=== PATIENT | female | born 1995 ===

== ENCOUNTER 2019-10-27 02:47 | Inpatient (IN) | payer MEDICAID ==
[2019-10-27] MEDS ORDERED: fentaNYL/Ropivacaine/Ns/PF 100 ML Bag ONE (02:53)
[2019-10-27] MEDS ORDERED: Lidocaine 1% 50 ML MDV INJECT PRN (03:09)
[2019-10-27] MEDS ORDERED: Carboprost Tromethamine 250 MCG/1 ML Amp IM PRN (03:09)
[2019-10-27] MEDS ORDERED: Sodium Chloride 0.9% 10 ML SDV IV PRN (03:09)
[2019-10-27] MEDS ORDERED: Methylergonovine 0.2 MG/1 ML Amp IM PRN (03:09)
[2019-10-27] MEDS ORDERED: Sodium Chloride 0.9% 10 ML Syringe FLUSH PRN (03:09)
[2019-10-27] MEDS ORDERED: Tranexamic Acid 1,000 MG in Sodium Chloride 0.9% 100 ML IV PRN (03:09)
[2019-10-27] MEDS ORDERED: Butorphanol 1 MG/ML SDV IVPUSH PRN (03:09)
[2019-10-27] MEDS ORDERED: Nalbuphine 10 MG/1 ML Vial IVPUSH PRN (03:09)
[2019-10-27] MEDS ORDERED: Sodium Chloride 0.9% 2.5 ML Syringe FLUSH PRN (03:09)
[2019-10-27] MEDS ORDERED: Misoprostol 200 MCG Tab PO PRN (03:09)
[2019-10-27] MEDS ORDERED: Water For Irrigation,Sterile 1,000 ML Container IRR PRN (03:09)
[2019-10-27] MEDS ORDERED: Oxytocin/0.9 % Sodium Chloride 30 UNIT/500 ML BAG IV SCH ×2 (03:15→07:30)
--- NOTE | 2019-10-27 03:27 | PCM.PREANE ---
Preanesthetic Assessment - Anesthesia/Transfusion/Family Hx Anesthesia History: No Prior Anesthesia Family History of Anesthesia Reaction: Yes (mother - unknown respiratory issue) Transfusion History: No Prior Transfusion(s) - Review of Systems General: No Symptoms Pulmonary: No Symptoms Cardiovascular: No Symptoms Gastrointestinal: No Symptoms Neurological: No Symptoms Other: Reports: None ( - 39 3/7 weeks, in active labor, dilated to 5 cm) - Physical Assessment NPO Status Date: 10/27/19 NPO Status Time: 03:23 ASA Class: 2 Mental Status: Alert & Oriented x3 Airway Class: Mallampati = 3 Dentition: Reports: Normal Dentition Thyro-Mental Finger Breadths: 2 ROM/Head Extension: Full Lungs: Clear to Auscultation, Normal Respiratory Effort Cardiovascular: Regular Rate, Regular Rhythm - Acknowledgements Anesthesia Type Planned: Epidural Pt an Appropriate Candidate for the Planned Anesthesia: Yes Alternatives and Risks of Anesthesia Discussed w Pt/Guardian: Yes Pt/Guardian Understands and Agrees with Anesthesia Plan: Yes PreAnesthesia Questionnaire - CURRENT (IN HOUSE) MEDS Current Meds: Current Medications Butorphanol Tartrate (Stadol) 1 mg IVPUSH Q1H PRN PRN Reason: Pain Carboprost Tromethamine (Hemabate Ds) 250 mcg IM ASDIRECTED PRN PRN Reason: Post Hemorrhage Tranexamic Acid 1,000 mg/ (Sodium Chloride) 110 mls @ 660 mls/hr IV ONETIME PRN PRN Reason: Bleeding Lactated Ringer's (Ringers, Lactated) 1,000 mls @ 150 mls/hr IV ASDIRECTED ILENE Oxytocin/Sodium Chloride (Oxytocin 30 Unit/500 Ml-Ns) 30 unit in 500 mls @ 999 mls/hr IV TITRATE ILENE Lidocaine HCl (Xylocaine 1%) 50 ml INJECT ONETIME PRN PRN Reason: Laceration repair Methylergonovine Maleate (Methergine) 0.2 mg IM ASDIRECTED PRN PRN Reason: Post Hemorrhage Misoprostol (Cytotec) 200 mcg PO ONETIME PRN PRN Reason: Post Hemorrhage Nalbuphine HCl (Nubain) 10 mg IVPUSH Q1H PRN PRN Reason: Pain (severe 7-10) Sodium Chloride (Saline Flush) 10 ml FLUSH ASDIRECTED PRN PRN Reason: Keep Vein Open Sodium Chloride (Saline Flush) 2.5 ml FLUSH ASDIRECTED PRN PRN Reason: Keep Vein Open Sodium Chloride (Normal Saline) 10 ml IV ASDIRECTED PRN PRN Reason: IV Use Sterile Water (Sterile Water For Irrigation) 1,000 ml IRR ASDIRECTED PRN PRN Reason: delivery
[2019-10-27] MEDS: Lactated Ringers 1,000 ML IV SCH ×3 (03:41→04:57)
[2019-10-27] MEDS ORDERED: fentaNYL 100 MCG/2 ML SDV ONE (08:22)
--- NOTE | 2019-10-27 08:27 | PCM.SN.2 ---
- Free Text/Narrative Note: called to OB for increase in pain. Epidural bolused with 100 mcg of Fentanyl and infusion rate increased to 12 ml per hour.
--- NOTE | 2019-10-27 10:47 | PCM.SN.2 ---
- Free Text/Narrative Note: Epidural bag empty. Naropin 0.2% started. Rate 10ml/hr. Bolus 4ml/q15. Progressing well. Mostly complete.
[2019-10-27] MEDS ORDERED: Docusate Sodium 100 MG Cap PO PRN (12:25)
[2019-10-27] MEDS ORDERED: Bisacodyl 10 MG Supp RECTAL PRN (12:25)
[2019-10-27] MEDS ORDERED: Ibuprofen 800 MG Tab PO PRN (12:25)
[2019-10-27] MEDS ORDERED: Witch Hazel Medicated Pads 40/Jar TOP PRN (12:25)
[2019-10-27] MEDS ORDERED: oxyCODONE 5 MG Tab PO PRN (12:25)
[2019-10-27] MEDS ORDERED: Lanolin 100% Cream 7 GM Tube TOP PRN (12:25)
[2019-10-27] MEDS ORDERED: Benzocaine/Menthol 20%-0.5% Spray 78 GM Cannister TOP PRN (12:25)
--- NOTE | 2019-10-27 12:29 | PCM.DEL ---
L & D Note - General Info Date of Service: 10/27/19 Mother's Due Date: 10/29/19 - Delivery Note Labor: Spontaneous, Augmented by Oxytocin Delivery Outcome: Livebirth Presentation: Vertex Nuchal Cord: None Anesthesia Type: Epidural Anesthetic: Lidocaine (Xylocaine) 1% Plain Amniotic Fluid Description: Clear Episiotomy Type: None Laceration: 2nd Degree Suture type: Vicryl Suture size: 2-0 Placenta: Intact, Spontaneous Cord: 3 Vessels : Bulb Syringe, Stimulated, Warmed, [place] Used Score 1 min: 8 Score 5 min: 9 - General Info Date of Service: 10/27/19 - Patient Data Weight - Most Recent: 87.997 kg Lab Results Last 24 Hours: Laboratory Results - last 24 hr 10/27/19 10/27/19 Range/Units 03:30 03:30 WBC 13.28 H (4.0-11.0) K/uL RBC 4.20 L (4.30-5.90) M/uL Hgb 11.0 L (12.0-16.0) g/dL Hct 35.5 L (36.0-46.0) % MCV 84.5 (80.0-98.0) fL MCH 26.2 L (27.0-32.0) pg MCHC 31.0 (31.0-37.0) g/dL RDW Std Deviation 45.3 (28.0-62.0) fl RDW Coeff of Whit 15 (11.0-15.0) % Plt Count 218 (150-400) K/uL MPV 12.00 (7.40-12.00) fL Nucleated RBC % 0.0 /100WBC Nucleated RBCs # 0 K/uL Blood Type B POSITIVE Antibody Screen NEGATIVE Med Orders - Current: Current Medications Acetaminophen (Tylenol Extra Strength) 1,000 mg PO Q6H PRN PRN Reason: Pain Benzocaine/Menthol (Dermoplast Pain Relief 20%-0.5% [place]) 78 gm TOP ASDIRECTED PRN PRN Reason: Perineal Comfort Measure Bisacodyl (Dulcolax) 10 mg RECTAL ONETIME PRN PRN Reason: Constipation Butorphanol Tartrate (Stadol) 1 mg IVPUSH Q1H PRN PRN Reason: Pain Carboprost Tromethamine (Hemabate Ds) 250 mcg IM ASDIRECTED PRN PRN Reason: Post Hemorrhage Docusate Sodium (Colace) 100 mg PO BID PRN PRN Reason: Constipation Emollient Ointment (Lansinoh Hpa) 0 gm TOP ASDIRECTED PRN PRN Reason: Sore Nipples Tranexamic Acid 1,000 mg/ (Sodium Chloride) 110 mls @ 660 mls/hr IV ONETIME PRN PRN Reason: Bleeding Lactated Ringer's (Ringers, Lactated) 1,000 mls @ 150 mls/hr IV ASDIRECTED ILENE Last Admin: 10/27/19 04:57 Dose: 150 mls/hr Oxytocin/Sodium Chloride (Oxytocin 30 Unit/500 Ml-Ns) 30 unit in 500 mls @ 999 mls/hr IV TITRATE ILENE Oxytocin/Sodium Chloride (Oxytocin 30 Unit/500 Ml-Ns) 30 unit in 500 mls @ 2 mls/hr IV TITRATE ILENE; Protocol Last Infusion: 10/27/19 11:48 Dose: 900 munits/min, 900 mls/hr Ibuprofen (Motrin) 800 mg PO Q8H PRN PRN Reason: Pain Lidocaine HCl (Xylocaine 1%) 50 ml INJECT ONETIME PRN PRN Reason: Laceration repair Last Admin: 10/27/19 12:01 Dose: 50 ml Methylergonovine Maleate (Methergine) 0.2 mg IM ASDIRECTED PRN PRN Reason: Post Hemorrhage Misoprostol (Cytotec) 200 mcg PO ONETIME PRN PRN Reason: Post Hemorrhage Nalbuphine HCl (Nubain) 10 mg IVPUSH Q1H PRN PRN Reason: Pain (severe 7-10) Oxycodone HCl (Oxycodone) 5 mg PO Q2H PRN PRN Reason: Pain Sodium Chloride (Saline Flush) 10 ml FLUSH ASDIRECTED PRN PRN Reason: Keep Vein Open Sodium Chloride (Saline Flush) 2.5 ml FLUSH ASDIRECTED PRN PRN Reason: Keep Vein Open Sodium Chloride (Normal Saline) 10 ml IV ASDIRECTED PRN PRN Reason: IV Use Sterile Water (Sterile Water For Irrigation) 1,000 ml IRR ASDIRECTED PRN PRN Reason: delivery Last Admin: 10/27/19 12:01 Dose: 1,000 ml Witch Jen (Tucks) 1 pad TOP ASDIRECTED PRN PRN Reason: comfort care Discontinued Medications Fentanyl (Sublimaze) Confirm Administered Dose 100 mcg .ROUTE .STK-MED ONE Stop: 10/27/19 08:23 - Problem List & Annotations (1) Vaginal delivery SNOMED Code(s): 080286267 Code(s): O80 - ENCOUNTER FOR FULL-TERM UNCOMPLICATED DELIVERY Status: Acute Current Visit: Yes - Problem List Review Problem List Initiated/Reviewed/Updated: Yes - My Orders Last 24 Hours: My Active Orders 10/27/19 12:25 Patient Status [ADT] Routine Cooling Warming Measures [RC] ASDIRECTED May Shower [RC] ASDIRECTED Notify Provider Vital Signs [RC] ASDIRECTED Up ad Fernanda [RC] ASDIRECTED Vital Signs [RC] PER UNIT ROUTINE Acetaminophen [Tylenol Extra Strength] 1,000 mg PO Q6H PRN Benzocaine/Menthol [Dermoplast Pain Relief 20%-0.5% [place]] 78 gm TOP ASDIRECTED PRN Docusate Sodium [Colace] 100 mg PO BID PRN Ibuprofen [Motrin] 800 mg PO Q8H PRN Lanolin [Lansinoh HPA] See Dose Instructions TOP ASDIRECTED PRN bisacodyL [Dulcolax] 10 mg RECTAL ONETIME PRN oxyCODONE 5 mg PO Q2H PRN raheem Willis [Tucks] 1 pad TOP ASDIRECTED PRN Assess Lochia [WOMSER] Per Unit Routine Assess Uterine Involution [WOMSER] Per Unit Routine Breast Pump [WOMSER] Per Unit Routine Ice Therapy [OM.PC] Per Unit Routine Perineal Care [OM.PC] Per Unit Routine Peripheral IV Discontinue [OM.PC] Routine Sitz Bath [OM.PC] Per Unit Routine 10/27/19 Lunch Regular Diet [DIET] 10/28/19 05:11 HEMOGLOBIN/HEMATOCRIT,HH [HEME] Timed - Assessment Assessment:: 24yo s/p at 39w5d - Plan Plan:: Admit to unit for routine care.
--- NOTE | 2019-10-27 17:42 | OR ---
SURGEON: Jaclyn Busch MD DATE OF PROCEDURE: 10/27/2019 PREOPERATIVE DIAGNOSES: 1. A 24-year-old, G2, P 0-0-1-0, at 39-5/7 weeks' gestation. 2. Labor. 3. Group B Streptococcus negative. POSTOPERATIVE DIAGNOSES: 1. A 24-year-old, G2, P 1-0-1-1, status post spontaneous vaginal delivery at 39-5/7 weeks' gestation. 2. Second-degree perineal laceration. PROCEDURES: 1. Spontaneous vaginal delivery. 2. Second-degree perineal laceration. PRIMARY SURGEON: Jaclyn Busch MD ANESTHESIA: Epidural and local. ESTIMATED BLOOD LOSS: 400 mL. FINDINGS: Live female infant, cephalic presentation. score of 8 and 9 at one and five minutes respectively. Weight 3560 g. Placenta intact and with 3-vessel cord. Second-degree perineal laceration. Estimated blood loss 400 mL. INDICATIONS: This is a 24-year-old, G2, P 0-0-1-0, who presented at 39-5/7 weeks' gestation complaining of contractions. Upon presentation, her cervix was 6 cm dilated. She received an epidural for pain control. She underwent artificial rupture of membranes. The patient remained 6 cm and was started on Pitocin for augmentation of labor. She progressed to complete cervical dilation. DESCRIPTION OF PROCEDURE: I was called to the room and station was noted to be at +4 station. Over the next two contractions, the patient pushed and delivered a live female infant. Head was delivered followed quickly by the shoulders and remainder of the body. The was placed on the maternal abdomen. After approximately 60 seconds, the cord was clamped and cut. Cord blood was obtained. The placenta then delivered intact via the Funk-Frank maneuver. Perineum was inspected and a second-degree perineal laceration was noted. This was extensive and a rectal exam confirmed that the anal sphincter was intact. The patient had poor pain control and so this was infiltrated with 1% lidocaine. After adequate analgesia, the second-degree perineal laceration was repaired with a running stitch of 2-0 Vicryl suture to anatomy and hemostasis. The fundus was firm below the umbilicus with scant bleeding. The patient and tolerated the delivery well. [id number] / MODL /[id number] AVEL
[2019-10-27] MEDS: Acetaminophen 500 MG Tab PO PRN (22:43)
--- NOTE | 2019-10-28 08:28 | PCM48HPAN ---
Post Anesthesia Note - EVALUATION WITHIN 48HRS OF ANESTHETIC Vital Signs in Normal Range: Yes Patient Participated in Evaluation: Yes Respiratory Function Stable: Yes Airway Patent: Yes Cardiovascular Function Stable: Yes Hydration Status Stable: Yes Pain Control Satisfactory: Yes Nausea and Vomiting Control Satisfactory: Yes Mental Status Recovered: Yes Vital Signs: Last Vital Signs Temp 36.4 C 10/28/19 08:00 Pulse 85 10/28/19 08:00 Resp 16 10/28/19 08:00 BP 106/63 10/28/19 08:00 Pulse Ox 100 10/28/19 08:00 - COMMENTS/OBSERVATIONS Free Text/Narrative:: Doing well. No problems post.
--- NOTE | 2019-10-28 09:14 | PCM.PNPP ---
- General Info Date of Service: 10/28/19 Functional Status: Reports: Pain Controlled, Tolerating Diet, Ambulating, Urinating - Review of Systems General: Reports: No Symptoms HEENT: Reports: No Symptoms Pulmonary: Reports: No Symptoms Cardiovascular: Reports: No Symptoms Gastrointestinal: Reports: No Symptoms Genitourinary: Reports: No Symptoms Musculoskeletal: Reports: No Symptoms Skin: Reports: No Symptoms Neurological: Reports: No Symptoms Psychiatric: Reports: No Symptoms - Patient Data Vital Signs - Most Recent: Last Vital Signs Temp 36.4 C 10/28/19 08:00 Pulse 85 10/28/19 08:00 Resp 16 10/28/19 08:00 BP 106/63 10/28/19 08:00 Pulse Ox 100 10/28/19 08:00 Weight - Most Recent: 194 lb Lab Results - Last 24 Hours: Laboratory Results - last 24 hr 10/28/19 Range/Units 05:49 Hgb 9.4 L (12.0-16.0) g/dL Hct 30.9 L (36.0-46.0) % Med Orders - Current: Current Medications Acetaminophen (Tylenol Extra Strength) 1,000 mg PO Q6H PRN PRN Reason: Pain Last Admin: 10/27/19 22:43 Dose: 1,000 mg Benzocaine/Menthol (Dermoplast Pain Relief 20%-0.5% [place]) 78 gm TOP ASDIRECTED PRN PRN Reason: Perineal Comfort Measure Last Admin: 10/27/19 13:30 Dose: 1 spray Bisacodyl (Dulcolax) 10 mg RECTAL ONETIME PRN PRN Reason: Constipation Butorphanol Tartrate (Stadol) 1 mg IVPUSH Q1H PRN PRN Reason: Pain Carboprost Tromethamine (Hemabate Ds) 250 mcg IM ASDIRECTED PRN PRN Reason: Post Hemorrhage Docusate Sodium (Colace) 100 mg PO BID PRN PRN Reason: Constipation Last Admin: 10/27/19 13:29 Dose: 100 mg Emollient Ointment (Lansinoh Hpa) 0 gm TOP ASDIRECTED PRN PRN Reason: Sore Nipples Last Admin: 10/27/19 13:29 Dose: 1 gm Tranexamic Acid 1,000 mg/ (Sodium Chloride) 110 mls @ 660 mls/hr IV ONETIME PRN PRN Reason: Bleeding Lactated Ringer's (Ringers, Lactated) 1,000 mls @ 150 mls/hr IV ASDIRECTED ILENE Last Admin: 10/27/19 04:57 Dose: 150 mls/hr Oxytocin/Sodium Chloride (Oxytocin 30 Unit/500 Ml-Ns) 30 unit in 500 mls @ 999 mls/hr IV TITRATE ILENE Oxytocin/Sodium Chloride (Oxytocin 30 Unit/500 Ml-Ns) 30 unit in 500 mls @ 2 mls/hr IV TITRATE ILENE; Protocol Last Infusion: 10/27/19 11:48 Dose: 900 munits/min, 900 mls/hr Ibuprofen (Motrin) 800 mg PO Q8H PRN PRN Reason: Pain Last Admin: 10/27/19 17:50 Dose: 800 mg Lidocaine HCl (Xylocaine 1%) 50 ml INJECT ONETIME PRN PRN Reason: Laceration repair Last Admin: 10/27/19 12:01 Dose: 50 ml Methylergonovine Maleate (Methergine) 0.2 mg IM ASDIRECTED PRN PRN Reason: Post Hemorrhage Misoprostol (Cytotec) 200 mcg PO ONETIME PRN PRN Reason: Post Hemorrhage Nalbuphine HCl (Nubain) 10 mg IVPUSH Q1H PRN PRN Reason: Pain (severe 7-10) Oxycodone HCl (Oxycodone) 5 mg PO Q2H PRN PRN Reason: Pain Sodium Chloride (Saline Flush) 10 ml FLUSH ASDIRECTED PRN PRN Reason: Keep Vein Open Sodium Chloride (Saline Flush) 2.5 ml FLUSH ASDIRECTED PRN PRN Reason: Keep Vein Open Sodium Chloride (Normal Saline) 10 ml IV ASDIRECTED PRN PRN Reason: IV Use Sterile Water (Sterile Water For Irrigation) 1,000 ml IRR ASDIRECTED PRN PRN Reason: delivery Last Admin: 10/27/19 12:01 Dose: 1,000 ml Witch Jen (Tucks) 1 pad TOP ASDIRECTED PRN PRN Reason: comfort care Last Admin: 10/27/19 13:30 Dose: 1 pad Discontinued Medications Fentanyl (Sublimaze) Confirm Administered Dose 100 mcg .ROUTE .STK-MED ONE Stop: 10/27/19 08:23 Ropivacaine/Fentanyl/NS (Fentanyl 2 Mcg-Ropiv 0.2%-Ns) 100 ml .ROUTE .STK-MED ONE Stop: 10/27/19 02:54 - Interaction Infant Disposition, : [place] at Bedside Infant Interaction: Holding Infant Feeding: Attempted ; Nursed Fair/Poor Support Person: Significant Other - Recovery Exam Fundal Tone: Firm Fundal Level: At Umbilicus Fundal Placement: Midline Lochia Amount: Scant Lochia Color: [place] Episiotomy/Laceration: Approximated Urinary Elimination: Voided - Exam General: Alert, Oriented, Cooperative, No Acute Distress HEENT: Pupils Equal, Pupils Reactive, EOMI Neck: Supple, Trachea Midline, No JVD Lungs: Normal Respiratory Effort GI/Abdominal Exam: Normal Bowel Sounds, Soft, Non-Tender, No Distention Extremities: Normal Inspection, Normal Range of Motion, Non-Tender, No Pedal Edema Skin: Warm, Dry, Intact Wound/Incisions: Healing Well Neurological: No New Focal Deficit Psy/Mental Status: Alert, Normal Affect, Normal Mood - Problem List Review Problem List Initiated/Reviewed/Updated: Yes - My Orders Last 24 Hours: My Active Orders 10/28/19 09:07 Discharge Patient [ADT] Routine - Assessment Assessment:: 24yo PPD1 s/p at 39w5d - Plan Plan:: Vitals stable. Bleeding light, Hgb 9.4, denies s/s of anemia. Continue iron supplements BID Tolerating PO and ambulating Stable for discharge home, given care instructions.
[2019-10-28] MEDS: Acetaminophen 500 MG Tab PO PRN (09:54)
== END 2019-10-28 15:00 | disposition home or self-care (01) | DRG 807 ==
LOC: MW.OBCHECK 02:47 → MW.OB 02:48 → MW.OBCHECK 03:09 → OBSVTOIN 12:25 → MW.OB 18:29
PROVIDERS: ADMIT Obstetrics & Gynecology; ATTEND Obstetrics & Gynecology
PROC: 10E0XZZ Delivery of Products of Conception, External Approach (ICD-10-PCS; principal; 2019-10-27)
PROC: 0KQM0ZZ Repair Perineum Muscle, Open Approach (ICD-10-PCS; 2019-10-27)
PROC: 10907ZC Drainage of Amniotic Fluid, Therapeutic from Products of Conception, Via Natural or Artificial Opening (ICD-10-PCS; 2019-10-27)
PROC: 3E0R3BZ Introduction of Anesthetic Agent into Spinal Canal, Percutaneous Approach (ICD-10-PCS; 2019-10-27)
DX: O70.1 Second degree perineal laceration during delivery (principal); Z37.0 Single live birth; Z3A.39 39 weeks gestation of pregnancy
CPT/HCPCS: 36415; 51702; 59025; 59409; 85014; 85018; 85027; 86592; 86593; 86850; 86900; 86901; A9270-GY; J2001; J2590; J3010; J7120

== ENCOUNTER 2023-09-28 00:34 | Inpatient (IN) | payer MEDICAID ==
[2023-09-28] MEDS ORDERED: Carboprost Tromethamine 250 MCG/1 mL Vial IM PRN (01:06)
[2023-09-28] MEDS ORDERED: Lidocaine 1% 50 ML MDV INJECT PRN (01:06)
[2023-09-28] MEDS ORDERED: Acetaminophen 325 MG Tab PO PRN (01:06)
[2023-09-28] MEDS ORDERED: Ondansetron 4 MG/2 ML SDV IVPUSH PRN (01:06)
[2023-09-28] MEDS ORDERED: Tranexamic Acid IN NACL,ISO-OS 1,000 MG in Premix Bag 1 BAG IV PRN ×2 (01:06→10:43)
[2023-09-28] MEDS ORDERED: Sodium Chloride 0.9% 2.5 ML Syringe FLUSH PRN (01:06)
[2023-09-28] MEDS ORDERED: Sodium Chloride 0.9% 20 ML SDV IV PRN (01:06)
[2023-09-28] MEDS ORDERED: Methylergonovine 0.2 MG/1 ML Amp IM PRN ×2 (01:06→10:43)
[2023-09-28] MEDS ORDERED: Terbutaline 1 MG/ML SDV SUBCUT PRN (01:06)
[2023-09-28] MEDS ORDERED: Docusate Sodium 100 MG Cap PO PRN ×3 (01:06→10:43)
[2023-09-28] MEDS ORDERED: Water For Irrigation,Sterile 1,000 ML Container IRR PRN (01:06)
[2023-09-28] MEDS ORDERED: Misoprostol 25 MCG (1/4 of 100 MCG) Tab VAG PRN ×2 (01:06)
[2023-09-28] MEDS ORDERED: Misoprostol 200 MCG Tab PO PRN (01:06)
[2023-09-28] MEDS ORDERED: Sodium Chloride 0.9% 10 ML Syringe FLUSH PRN (01:06)
[2023-09-28] MEDS ORDERED: Butorphanol 2 MG/ML SDV IVPUSH PRN (01:06)
[2023-09-28] MEDS ORDERED: Acetaminophen 500 MG Tab PO PRN ×2 (01:12→10:43)
[2023-09-28 01:29] LABS: HEMATOCRIT 33.5 % (37.0-47.0); HEMOGLOBIN 11.1 g/dL (12.0-16.0); MEAN CORPUSCULAR HEMOGLOBIN 27.7 pg (28.0-32.0); MEAN CORPUSCULAR HGB CONC 33.1 g/dL (32.0-36.0); MEAN CORPUSCULAR VOLUME 83.5 fL (83.0-99.0); MEAN PLATELET VOLUME 11.7 fL (9.4-12.3); PLATELET COUNT,PLT 196 K/uL (150-400); RED BLOOD CELL COUNT 4.01 M/uL (4.10-5.30); WHITE BLOOD CELL COUNT,WBC 9.95 K/uL (3.9-11.3)
[2023-09-28] MEDS: Lactated Ringers 1,000 ML IV SCH (01:47)
[2023-09-28] MEDS: Oxytocin/0.9 % Sodium Chloride 30 UNIT/500 ML BAG IV SCH ×2 (01:48→11:44)
[2023-09-28] MEDS ORDERED: Phenylephrine HCl 0.5 MG/5 ML AMP ONE (06:50)
[2023-09-28] MEDS ORDERED: Bupivacaine 0.5% 10 ML SDV ONE (06:50)
[2023-09-28] MEDS ORDERED: Ropivacaine HCl/PF 200 ML ONE (06:50)
[2023-09-28] MEDS: Ropivacaine HCl/PF 400 MG in Premix Bag 1 BAG EPIDUR SCH (07:05)
[2023-09-28] MEDS ORDERED: ePHEDrine 50 MG/ML SDV IVPUSH PRN ×2 (07:12)
[2023-09-28] MEDS ORDERED: Phenylephrine HCl In 0.9% NaCl 1 MG/10 ML Syringe IVPUSH PRN (07:12)
[2023-09-28] MEDS ORDERED: Ibuprofen 800 MG Tab PO PRN (10:43)
[2023-09-28] MEDS ORDERED: Lanolin 100% Cream 7 GM Tube TOP PRN (10:43)
[2023-09-28] MEDS ORDERED: Oxytocin/0.9 % Sodium Chloride 30 UNIT/500 ML BAG ONE (11:22)
[2023-09-28 11:25] LABS: PH,UMBILICAL ARTERIAL 7.217 (7.18-7.38); PH,UMBILICAL VENOUS 7.307 (7.25-7.45)
[2023-09-28] MEDS: Witch Hazel Medicated Pads 40/Jar TOP PRN (12:42)
[2023-09-28] MEDS: Benzocaine/Menthol 20%-0.5% Spray 78 GM Cannister TOP PRN (12:43)
[2023-09-29 04:28] LABS: HEMATOCRIT 33.2 % (37.0-47.0); HEMOGLOBIN 10.8 g/dL (12.0-16.0)
== END 2023-09-29 14:01 | disposition home or self-care (01) | DRG 807 ==
LOC: MW.OB 00:34 → OBSVTOIN 10:43 → MW.OB 10:43
PROVIDERS: ADMIT Obstetrics & Gynecology; ATTEND Obstetrics & Gynecology
PROC: 10E0XZZ Delivery of Products of Conception, External Approach (ICD-10-PCS; principal; 2023-09-28)
PROC: 10907ZC Drainage of Amniotic Fluid, Therapeutic from Products of Conception, Via Natural or Artificial Opening (ICD-10-PCS; 2023-09-28)
PROC: 3E033VJ Introduction of Other Hormone into Peripheral Vein, Percutaneous Approach (ICD-10-PCS; 2023-09-28)
PROC: 3E0P7VZ Introduction of Hormone into Female Reproductive, Via Natural or Artificial Opening (ICD-10-PCS; 2023-09-28)
PROC: 0HQ9XZZ Repair Perineum Skin, External Approach (ICD-10-PCS; 2023-09-28)
PROC: 3E0R3BZ Introduction of Anesthetic Agent into Spinal Canal, Percutaneous Approach (ICD-10-PCS; 2023-09-28)
PROC: 00HU33Z Insertion of Infusion Device into Spinal Canal, Percutaneous Approach (ICD-10-PCS; 2023-09-28)
DX: O99.334 Smoking (tobacco) complicating childbirth (principal); Z37.0 Single live birth; O70.0 First degree perineal laceration during delivery; Z3A.39 39 weeks gestation of pregnancy
CPT/HCPCS: 01967; 36415; 59025; 59409; 59414; 82803; 85014; 85018; 85027; 86592; 86850; 86900; 86901; A9270-GY; J0665; J2371; J2590; J2795; J7120